=== PATIENT | male | born 1970 ===

== ENCOUNTER 2019-10-18 08:01 | Day surgery (SDC) | payer OTHER ==
[~2019-10-18 08:01] MED LIST: ACID REDUCER20 M1 PO; ZESTORETIC 10-1 EACH PO; [UNRECOGNIZED DRUG - OTHER] PO
== END 2019-10-18 18:45 | disposition home or self-care (01) ==
LOC: CIR.AMB 08:01 → ADM 09:15 → CIR.AMB 09:15
DX: M23.8X1 Other internal derangements of right knee (principal); M23.41 Loose body in knee, right knee